=== PATIENT | female | born 1975 | race American Indian/Alaskan Native ===

== ENCOUNTER 2016-06-22 08:15 | Outpatient (CLI) | payer BC ==
--- NOTE | 2016-06-23 09:41 | Vascular Lab Report ---
RENAL ARTERY DUPLEX EXAM: REASON FOR EXAM: Renal artery stenosis. NOTE: Visualization is technically limited due to bowel gas. COMMENTS ON THE AORTA: The aorta is patent. Normal flow velocities are observed. No aneurysmal dilatation is noted. Mild atherosclerotic change is identified. The celiac artery is patent with normal flow velocity. The superior mesenteric artery is patent with normal flow velocity. COMMENTS ON THE RIGHT KIDNEY: The kidney measures 11 centimeters in greatest dimension. No obvious parenchymal abnormalities are noted. The renal artery is patent. Maximum systolic velocity is 148 cm/sec. This finding is consistent with less than 60% diameter reduction. Renal aortic index is 1.9. This finding is consistent with less than 60% diameter reduction. Overall findings are consistent with less than 60% diameter reduction in the renal artery. COMMENTS ON THE LEFT KIDNEY: The kidney measures 9.9 centimeters in greatest dimension. No obvious parenchymal abnormalities are noted. The renal artery is patent. Maximum systolic velocity is 79 cm/sec. This finding is consistent with less than 60% diameter reduction. Renal aortic index is 1. This finding is consistent with less than 60% diameter reduction. Overall findings are consistent with less than 60% diameter reduction in the renal artery. IMPRESSION: RIGHT KIDNEY: Less than 60% diameter reduction in the renal artery. LEFT KIDNEY: Less than 60% diameter reduction in the renal artery.
== END 2016-06-22 08:16 | disposition home or self-care (01) ==
LOC: VAS 08:15
DX: I10 Essential (primary) hypertension (principal); I70.1 Atherosclerosis of renal artery
CPT/HCPCS: 93975